=== PATIENT | female | born 1975 | race Caucasian/White ===

== ENCOUNTER 2018-07-12 03:34 | Emergency (ER) | payer OTHER ==
[2018-07-12] MEDS: ASPIRIN 325 MG TAB PO (04:17)
[2018-07-12 04:28] LABS: BASO % 0.6 % (0.0-1.0); EOS # 0.2 10^3/uL (0.0-0.50); HEMATOCRIT 38.7 % (36.0-47.0); HEMOGLOBIN 12.9 g/dl (12.0-15.5); IMMATURE GRANULOCYTE % 0.1 % (0-3.0); LYMPH # 2.6 10^3/uL (1.5-4.5); LYMPH % 36.8 % (24.0-44.0); MEAN CORPUSCULAR HEMOGLOBIN 31.3 pg (27.0-33.0); MEAN CORPUSCULAR HGB CONC 33.3 g/dl (32.0-36.5); MEAN CORPUSCULAR VOLUME 93.9 fl (80.0-96.0); MONO # 0.4 10^3/uL (0.0-0.8); MONO % 5.6 % (0.0-5.0); NEUTROPHILS # 3.8 10^3/uL (1.8-7.7); NEUTROPHILS % 53.9 % (36.0-66.0); PLATELET COUNT, AUTOMATED 345 10^3/uL (150-450); RED BLOOD COUNT 4.12 10^6/uL (4.00-5.40); RED CELL DISTRIBUTION WIDTH 11.9 % (11.5-14.5)
[2018-07-12 04:32] LABS: INR 0.93; PROTHROMBIN TIME 12.6 SECONDS (12.1-14.4)
[2018-07-12 04:33] LABS: PARTIAL THROMBOPLASTIN TIME 23.5 SECONDS (25.4-37.6)
[2018-07-12 04:43] LABS: ANION GAP 7 MEQ/L (8-16); BLOOD UREA NITROGEN 11 MG/DL (7-18); CALCIUM LEVEL 8.8 MG/DL (8.5-10.1); CARBON DIOXIDE LEVEL 29 MEQ/L (21-32); CHLORIDE LEVEL 105 MEQ/L (98-107); CK-MB VALUE MASS < 1.0 NG/ML (<3.6); CPK CREATINE PHOSPHOKINASE 48 U/L (26-192); GLOMERULAR FILTRATION RATE > 60.0 (>58); GLUCOSE, FASTING 100 MG/DL (70-100); MB/CK RELATIVE INDEX 2.08 (< OR =4); POTASSIUM SERUM 3.8 MEQ/L (3.5-5.1); SODIUM LEVEL 141 MEQ/L (136-145); TROPONIN I < 0.02 NG/ML (< 0.10)
[2018-07-12] MEDS ORDERED: ISOVUE-370 76% 100ML VIAL (Q9967) As Ordered (05:09)
[2018-07-12 09:04] LABS: CK-MB VALUE MASS < 1.0 NG/ML (<3.6); CPK CREATINE PHOSPHOKINASE 37 U/L (26-192); TROPONIN I < 0.02 NG/ML (< 0.10)
== END 2018-07-12 09:59 | disposition home or self-care (01) ==
LOC: M ED 03:34
DX: R07.89 Other chest pain (principal); Z82.49 Family history of ischemic heart disease and other diseases of the circulatory system; Z88.0 Allergy status to penicillin; Z88.8 Allergy status to other drugs, medicaments and biological substances
CPT/HCPCS: Q9967

== ENCOUNTER → 2019-03-01 | Outpatient (REF) | payer OTHER | LOC: M SFHCLERA 11:55 | PROVIDERS: ATTEND Physician Assistant Medical | DX: R82.90 Unspecified abnormal findings in urine (principal) | CPT/HCPCS: 81025; 87086; G0463 ==

== ENCOUNTER → 2019-06-10 | Outpatient (REF) | payer OTHER | LOC: M SFHCLERA 12:52 | PROVIDERS: ATTEND Physician Assistant | DX: J02.9 Acute pharyngitis, unspecified (principal) ==

== ENCOUNTER → 2019-08-04 | Outpatient (REF) | payer OTHER | LOC: M SFHCLERA 12:13 | PROVIDERS: ATTEND Physician Assistant | DX: R30.0 Dysuria (principal) | CPT/HCPCS: 81002; 81025; 87088; 87186; G0463 ==